=== PATIENT | male | born 1990 | race Caucasian/White ===

== ENCOUNTER 2016-09-17 13:06 | Emergency (ER) | payer MEDICAID ==
[2016-09-17] MEDS ORDERED: NS 1,000 ML IV ONE (13:49)
--- NOTE | 2016-09-17 13:51 | EDPHY ---
H & P Stated Complaint: R scapula pain Source: Patient Exam Limitations: No limitations - Personal History Current Tetanus/Diphtheria Vaccine: Unsure Current Tetanus Diphtheria and Acellular Pertussis (TDAP): Unsure - Medical/Surgical History Hx Asthma: No Hx Chronic Respiratory Disease: No Hx Diabetes: No Hx Cardiac Disease: No Hx Renal Disease: No Hx Cirrhosis: No Hx Alcoholism: No Hx HIV/AIDS: No Hx Splenectomy or Spleen Trauma: No - Social History Smoking Status: Current every day smoker Time Seen by Provider: 09/17/16 13:41 HPI/ROS: CHIEF COMPLAINT: Body aches, has an eaten HISTORY OF PRESENT ILLNESS: Patient is a 26-year-old homeless man who states that he is living in a broken down . He states that he has had a cold For the last few weeks with green nasal discharge. He has not had a headache or sinus pressure. Over the last 2 days he has developed a sore throat and cough as well as body aches. No vomiting or diarrhea.He does not have any history of cardiac or pulmonary disease. He has had chills but no sweats or fevers. REVIEW OF SYSTEMS: Constitutional: See HPI EENTM: denies: blurred vision, double vision, nose congestion Respiratory: denies: cough, shortness of breath Cardiac: denies: chest pain, irregular heart rate, lightheadedness, palpitations Gastrointestinal/Abdominal: denies: abdominal pain, diarrhea, nausea, vomiting, blood streaked stools Genitourinary: denies: dysuria, frequency, hematuria, pain Musculoskeletal: See HPI Skin: denies: lesions, rash, jaundice, bruising Neurological: denies: headache, numbness, paresthesia, tingling, dizziness, weakness Hematologic/Lymphatic: denies: blood clots, easy bleeding, easy bruising Immunologic/allergic: denies: HIV/AIDS, transplant EXAM: GENERAL: Lying in bed with mask in place, huddled under covers. HEAD: Atraumatic, normocephalic. EYES: Pupils equal round and reactive to light, extraocular movements intact, sclera anicteric, conjunctiva are normal. ENT: TMs normal, nares patent, oropharynx clear without exudates. Moist mucous membranes. NECK: Normal range of motion, supple without lymphadenopathy or JVD. LUNGS: Breath sounds clear to auscultation bilaterally and equal. No wheezes rales or rhonchi. HEART: Regular rate and rhythm without murmurs, rubs or gallops. ABDOMEN: Soft, nontender, normoactive bowel sounds. No guarding, no rebound. No masses appreciated. BACK: No CVA tenderness, no spinal tenderness, step-offs or deformities EXTREMITIES: Normal range of motion, no pitting or edema. No clubbing or cyanosis. NEUROLOGICAL: Cranial nerves II through XII grossly intact. Normal speech, normal gait. 5/5 strength, normal movement in all extremities, normal sensation PSYCH: Normal mood, normal affect. SKIN: Warm, dry, normal turgor, no visible rashes or lesions. (Kerwin Kimball) Constitutional: Initial Vital Signs Temperature (C) 36.7 C 09/17/16 13:08 Heart Rate 103 H 09/17/16 13:08 Respiratory Rate 14 09/17/16 13:08 Blood Pressure 103/69 09/17/16 13:08 O2 Sat (%) 99 09/17/16 13:08 O2 Delivery Mode Room Air Allergies/Adverse Reactions: No Known Allergies Allergy (Unverified 09/17/16 13:11) Medical Decision Making - Diagnostics Imaging: X-ray: chest x-ray was obtained. I viewed the images myself on the PACS system. My interpretation of the images is: negative for acute disease . The radiologist interpretation is negative. (Kerwin Kimball) ED Course/Re-evaluation: 3:00 p.m. the patient is feeling better. He is tolerating p. o.. He is asking for more Zofran. I will treat him with this. I recommended discharge with rest and hydration. He tells me that he is feeling suicidal and cannot go on living this way in a trailer. He does not have any diagnosed history of psychiatric disease. He denies recent drug or alcohol ingestion. I will have Mental Health evaluate him. I will not place him on a hold. He wishes to stay here voluntarily. 3:10 p.m. the patient care transferred to Dr. Travis Lee. Pending psychiatric evaluation. (Kerwin Kimball) 2113; [facility] seen evaluated the patient plan is for discharge. patient is a safety plan. Patient no longer suicidal, does have a history of depression has good follow- up plan in place. Will be discharged. (Travis Lee) Differential Diagnosis: Partial list of the Differential diagnosis considered include but were not limited to; viral syndrome mononucleosis, strep throat and although unlikely based on the history and physical exam, I also considered meningitis, pneumonia. (Kerwin Kimball) - Data Points Laboratory Results: Laboratory Results 09/17/16 13:55 09/17/16 13:55 09/17/16 09/17/16 15:20 13:55 WBC 9.87 H 10^3/uL (3.80-9.50) RBC 5.14 10^6/uL (4.40-6.38) Hgb 16.5 g/dL (13.7-17.5) Hct 47.4 % (40.0-51.0) MCV 92.2 fL (81.5-99.8) MCH 32.1 pg (27.9-34.1) MCHC 34.8 g/dL (32.4-36.7) RDW 12.2 % (11.5-15.2) Plt Count 150 10^3/uL (150-400) MPV 11.1 fL (8.7-11.7) Neut % (Auto) 84.0 H % (39.3-74.2) Lymph % (Auto) 9.2 L % (15.0-45.0) Rolette % (Auto) 5.7 % (4.5-13.0) Eos % (Auto) 0.6 % (0.6-7.6) Baso % (Auto) 0.2 L % (0.3-1.7) Nucleat RBC Rel Count 0.0 % (0.0-0.2) Absolute Neuts (auto) 8.29 H 10^3/uL (1.70-6.50) Absolute Lymphs (auto) 0.91 L 10^3/uL (1.00-3.00) Absolute Monos (auto) 0.56 10^3/uL (0.30-0.80) Absolute Eos (auto) 0.06 10^3/uL (0.03-0.40) Absolute Basos (auto) 0.02 10^3/uL (0.02-0.10) Absolute Nucleated RBC 0.00 10^3/uL (0-0.01) Immature Gran % 0.3 % (0.0-1.1) Immature Gran # 0.03 10^3/uL (0.00-0.10) Sodium 137 mEq/L (134-144) Potassium 4.2 mEq/L (3.5-5.2) Chloride 102 mEq/L (97-110) Carbon Dioxide 25 mEq/l (22-31) Anion Gap 10 mEq/L (8-16) BUN 21 mg/dL (7-23) Creatinine 1.0 mg/dL (0.7-1.3) Estimated GFR > 60 Glucose 90 mg/dL (70-100) Calcium 8.9 mg/dL (8.5-10.4) Urine Opiates Screen NEGATIVE (NEGATIVE) Urine Barbiturates NEGATIVE (NEGATIVE) Ur Phencyclidine Scrn NEGATIVE (NEGATIVE) Ur Amphetamine Screen NEGATIVE (NEGATIVE) U Benzodiazepines Scrn NEGATIVE (NEGATIVE) Urine Cocaine Screen NEGATIVE (NEGATIVE) U Marijuana (THC) Screen NON-NEGATIVE H (NEGATIVE) Ethyl Alcohol < 10 mg/dL (0-10) Monoscreen NEGATIVE (NEGATIVE) Influenza Typ A,B (DFA) NEGATIVE FOR FLU (NEGATIVE) Medications Given: Discontinued Medications Acetaminophen (Tylenol) 1,000 mg PO EDNOW ONE Stop: 09/17/16 15:03 Last Admin: 09/17/16 15:11 Dose: 1,000 mg Diphenhydramine HCl (Benadryl) 25 mg PO EDNOW ONE Stop: 09/17/16 20:17 Last Admin: 09/17/16 20:23 Dose: 25 mg Sodium Chloride (Ns) 1,000 mls @ 0 mls/hr IV ONCE ONE PRN Reason: Wide Open Stop: 09/17/16 13:50 Last Admin: 09/17/16 14:00 Dose: 1,000 mls Ibuprofen (Motrin) 600 mg PO EDNOW ONE Stop: 09/17/16 20:19 Last Admin: 09/17/16 20:24 Dose: 600 mg Ondansetron HCl (Zofran) 4 mg IVP EDNOW ONE Stop: 09/17/16 15:03 Last Admin: 09/17/16 15:12 Dose: 4 mg Departure - Departure Disposition: Home, Routine, Self-Care Clinical Impression: Viral syndrome Depression Qualifiers: Depression Type: major depressive disorder Major depression recurrence: single episode Active/Remission status: currently active Major depression episode severity: mild Qualifier Code: (F32.0) Major depressive disorder, single episode , mild Condition: Fair Instructions: Viral Syndrome (ED) Referrals: NONE *PRIMARY CARE P,. [Primary Care Provider] - As per Instructions
[2016-09-17 14:10] LABS: % IMMATURE GRANULYOCYTES 0.3 % (0.0-1.1); ABSOLUTE IMMATURE GRANULOCYTES 0.03 10^3/uL (0.00-0.10); ADD DIFF? NO; ADD MORPH? NO; ADD SCAN? NO; ATYPICAL LYMPHOCYTE FLAG 20 (0-99); FRAGMENT RBC FLAG 0 (0-99); HEMATOCRIT 47.4 % (40.0-51.0); HEMOGLOBIN 16.5 g/dL (13.7-17.5); LEFT SHIFT FLG 0 (0-99); LIPEMIA HEMOLYSIS FLAG 90 (0-99); MEAN CELL HEMOGLOBIN 32.1 pg (27.9-34.1); MEAN CELL HEMOGLOBIN CONCENTR. 34.8 g/dL (32.4-36.7); MEAN CELL VOLUME 92.2 fL (81.5-99.8); MEAN PLATELET VOLUME 11.1 fL (8.7-11.7); PLATELET CLUMPS FLAG 10 (0-99); PLATELET COUNT 150 10^3/uL (150-400); RED BLOOD CELL COUNT 5.14 10^6/uL (4.40-6.38); RED CELL DISTRIBUTION WIDTH 12.2 % (11.5-15.2)
--- NOTE | 2016-09-17 14:17 | DX ---
Chest, PA and Lateral History: Chest pain. Cough x1 month. Left-sided pain. Findings: Lungs clear. Heart normal. No pneumothorax, pneumomediastinum or pleural effusion. The stom ach is distended with fluid. There is an air-fluid level in the upper stomach. Impression: 1. Negative chest. 2. Distended stomach.
[2016-09-17 14:24] LABS: ANION GAP 10 mEq/L (8-16); CALCIUM 8.9 mg/dL (8.5-10.4); CARBON DIOXIDE 25 mEq/l (22-31); CHLORIDE 102 mEq/L (97-110); GLOMERULAR FILTRATION RATE > 60; GLUCOSE 90 mg/dL (70-100); POTASSIUM 4.2 mEq/L (3.5-5.2); SODIUM 137 mEq/L (134-144)
[2016-09-17] MEDS ORDERED: ONDANSETRON 4 MG/2 ML VIAL IVP ONE (15:02)
[2016-09-17] MEDS ORDERED: ONDANSETRON 4 MG/2 ML VIAL ONE (15:02)
[2016-09-17] MEDS ORDERED: ACETAMINOPHEN 500 MG TAB PO ONE (15:02)
[2016-09-17] MEDS ORDERED: ACETAMINOPHEN 500 MG TAB ONE (15:03)
[2016-09-17 15:23] LABS: ETHANOL SERUM < 10 mg/dL (0-10)
[2016-09-17] MEDS ORDERED: diphenhydrAMINE 25 MG CAP PO ONE (20:16)
[2016-09-17] MEDS ORDERED: IBUPROFEN 600 MG TAB PO ONE (20:18)
[2016-09-17] MEDS ORDERED: FAMOTIDINE 20 MG/2 ML SDV IVP ONE (21:18)
[2016-09-17] MEDS ORDERED: methylPREDNISolone SOD SUCC 125 MG/2 ML VIAL IVP ONE (21:18)
[2016-09-17 22:43] VITALS: BP 117/62; PULSE 77; RESP 12; TEMP 98.8; O2SAT 94
== END 2016-09-17 22:49 | disposition home or self-care (01) ==
DX: B34.9 Viral infection, unspecified (principal); F17.200 Nicotine dependence, unspecified, uncomplicated; F32.0 Major depressive disorder, single episode, mild; R21 Rash and other nonspecific skin eruption; Z59.0 Homelessness; M79.1 Myalgia
CPT/HCPCS: 80305; 96374; G0480; J2405